=== PATIENT | male | born 1940 | race Caucasian/White ===

== ENCOUNTER 2019-09-29 17:35 | Emergency (ER) | payer MEDICARE, OTHER ==
[~2019-09-29] VITALS: Ht 167.6 cm; Wt 81.7 kg
[~2019-09-29 17:35] MED LIST: ASPI81CH; CIPR500; HYDURE500; LEVSOD50; OXYACE5T; OXYACEL; PHENA200; ROSU10TA
[2019-09-29] MEDS ORDERED: PREG50 PO (17:47)
[2019-09-29] MEDS ORDERED: ONDA4ODT MM (17:49)
[2019-09-29] MEDS ORDERED: Norco 5-325 Ta1 EACH PO (17:49)
== END 2019-09-29 17:53 | disposition home or self-care (01) ==
LOC: ER 17:35
DX: B02.29 Other postherpetic nervous system involvement (principal); Z87.891 Personal history of nicotine dependence; Z79.899 Other long term (current) drug therapy; Z79.82 Long term (current) use of aspirin
CPT/HCPCS: 99282

== ENCOUNTER → 2025-09-02 | Outpatient (CLI) | payer MEDICARE, OTHER ==
[~2025-09-02] MED LIST changes: +COLACE100 MG PO; +EUTHYROX50 MCG PO; -HYDURE500; +HYDURE500 PO; -LEVSOD50; +Norco 5-325 Ta1 EACH PO; +ONDA4ODT MM; +PAXLOVID 150-11 EACH PO; +PRAV20 PO; +PREG50 PO
[2025-09-02 19:39] LABS: Source, Urine Clean Catch
[2025-09-02 19:56] LABS: Bilirubin, Urine Neg (Neg); Glucose Qualitative, Urine Neg (Neg); Ketones, Urine Neg (Neg); Leukocyte Esterase, Urine 3+ (Neg); Protein, Urine 3+ (Neg); Specific Gravity, Urine 1.010 (1.003-1.022); Urobilinogen, Urine NORM (Normal)
[2025-09-02 20:05] LABS: Color, Urine Pale Yellow (P-Yellow); White Blood Cells, Urine 25-50 /hpf (0-5)
== END ==
LOC: LAB SHORT 16:45 → LAB 16:45
PROVIDERS: Hospitalist
DX: N39.0 Urinary tract infection, site not specified (principal)
CPT/HCPCS: 81001